=== PATIENT | male | born 1990 | race African-American/Black ===

== ENCOUNTER 2017-09-04 15:08 | Emergency (ER) | payer MEDICAID ==
[2017-09-04 16:04] VITALS: BP 0/0
== END 2017-09-04 16:04 | disposition left against medical advice (07) ==
LOC: ED 15:08
DX: T24.002A Burn of unspecified degree of unspecified site of left lower limb, except ankle and foot, initial encounter (principal); X08.8XXA Exposure to other specified smoke, fire and flames, initial encounter; Y92.9 Unspecified place or not applicable; Z53.20 Procedure and treatment not carried out because of patient's decision for unspecified reasons
CPT/HCPCS: 99281

== ENCOUNTER 2018-06-08 06:19 | Emergency (ER) | payer MEDICAID ==
--- NOTE | 2018-06-08 07:01 | ED ---
Skin Complaint - HPI Summary HPI Summary: 27-year-old male presents with a lesion to left foot that opened up for the past couple days. He states that he had noticed some darkening of his left great toe 2 weeks ago. He states 2 days ago it started to ooze and open up. He states he cannot feel anything in his legs due to being paraplegic. He denies any fevers or chills. No pain. No other symptoms. He states that he has been having foul-smelling urine. He self caths and cannot feel anything at baseline but normally when he has foul-smelling urine he has UTI. He states he has a history of UTIs. he is not diabetic. he can not feel if his shoes are too tight. - History of Current Complaint Chief Complaint: EDGeneral Time Seen by Provider: 06/08/18 06:39 Stated Complaint: LEFT FOOT PAIN Pain Intensity: 0 - Allergy/Home Medications Allergies/Adverse Reactions: Allergies Allergy/AdvReac Type Severity Reaction Status Date / Time No Known Allergies Allergy Verified 09/04/17 15:24 Home Medications: Home Medications Baclofen TAB* [Lioresal TAB*] 10 mg PO TID PRN 06/08/18 [History Confirmed 06/08] Oxybutynin TAB* [Ditropan TAB*] 5 mg PO TID 06/08/18 [History Confirmed 06/08/18 ] PMH/Surg Hx/FS Hx/Imm Hx Endocrine/Hematology History: Denies: Hx Anticoagulant Therapy Neurological History: Reports: Other Neuro Impairments/Disorders - paraplegia Infectious Disease History: No Infectious Disease History: Denies: Traveled Outside the [place] in Last 30 Days - Family History Known Family History: Positive: Non-Contributory - Social History Alcohol Use: Occasionally Substance Use Type: Reports: None Smoking Status (MU): Light Every Day Tobacco Smoker Review of Systems Negative: Fever Negative: Cough Positive: other - foul smelling urine Positive: Rash - left foot All Other Systems Reviewed And Are Negative: Yes Physical Exam Triage Information Reviewed: Yes Vital Signs On Initial Exam: Initial Vitals Temp Pulse Resp BP Pulse Ox 98 F 86 18 126/71 98 06/08/18 06:25 06/08/18 06:25 06/08/18 06:25 06/08/18 06:25 06/08/18 06:25 Vital Signs Reviewed: Yes Appearance: Positive: Well-Appearing Skin: Positive: Other - 4cm by 3cm ulcer on left foot with surrounding erythema Head/Face: Positive: Normal Head/Face Inspection Eyes: Positive: Normal, Conjunctiva Clear ENT: Positive: Pharynx normal Respiratory/Lung Sounds: Positive: Clear to Auscultation, Breath Sounds Present Cardiovascular: Positive: Normal, RRR Abdomen Description: Positive: Nontender, Soft Bowel Sounds: Positive: Present Musculoskeletal: Positive: Other - good pulses, unable to move legs due to paraplegia Neurological: Positive: Other - no sensation in legs at baseline Psychiatric: Positive: Normal Procedures - Laceration/Wound Repair 1 Location: Other - left fot Description: Irregular Length, Depth and Shape: 4cm by 3cm ulcer Irrigated w/ Saline (ccs): 100 Debridement: moderate Sterile Dressing Applied?: Yes - xeroform, telfa and loose coband Diagnostics - Vital Signs Vital Signs Temp Pulse Resp BP Pulse Ox 06/08/18 06:25 98 F 86 18 126/71 98 - Laboratory Result Diagrams: 06/08/18 07:08 06/08/18 07:08 Lab Statement: Any lab studies that have been ordered have been reviewed, and results considered in the medical decision making process. - Radiology foot Radiology Interpretation Completed By: Radiologist Summary of Radiographic Findings: IMPRESSION: 1. OSTEOPENIA. 2. NO APPRECIABLE EROSION OR PERIOSTEAL REACTION. 3. PLAIN FILM FINDINGS OF OSTEOMYELITIS ARE RELATIVELY LATE FINDINGS. IF THERE IS. PERSISTENT CLINICAL CONCERN FOR OSTEOMYELITIS, RECOMMEND CORRELATION WITH FOLLOWUP. IMAGING, THREE- PHASE BONE SCANNING, WHITE BLOOD CELL SCAN, AND/OR MRI OF THE AFFECTED. REGION. Course/Dx - Course Course Of Treatment: 27-year-old male presents with a lesion to left foot that opened up for the past couple days. He states that he had noticed some darkening of his left great toe 2 weeks ago. He states 2 days ago it started to ooze and open up. He states he cannot feel anything in his legs due to being paraplegic. He denies any fevers or chills. No pain. No other symptoms. He states that he has been having foul-smelling urine. He self caths and cannot feel anything at baseline but normally when he has foul- smelling urine he has UTI. He states he has a history of UTIs. on exam has 4cm by 3cm ulcer on left foot with surrounding erythema. nontender abd but cant feel anything at baseline. wbc normal. crp elevated. lactic normal. urine shows uti. gave dose of cefepime here. will use levaquin at home as will give coverage for complicated uti with cade and cellulitis with ulcer. debride wound and placed xeroform on area. told to wash area with soap and water twice a day and apply xeroform until can be seen by wound clinic for follow up. told to not wear shoes until heals. warned if develop fever to return. patient understand and agrees with plan. - Differential Diagnoses - Skin Complaint Differential Diagnoses: Abscess, Cellulitis, Contact Dermatitis - Diagnoses Provider Diagnoses: Ulcer of left foot, Cellulitis, UTI (urinary tract infection) Discharge - Sign-Out/Discharge Documenting (check all that apply): Patient Departure - Discharge Plan Condition: Good Disposition: HOME Prescriptions: Levofloxacin TAB* [Levaquin TAB*] 750 mg PO DAILY #10 tab Patient Education Materials: Urinary Tract Infection in Men (ED), Pressure Injury (ED) Referrals: [facility] [Outside] [facility] [Outside] Additional Instructions: Follow up with wound clinic Follow up with [facility] wash area with soap and water twice a day, apply xeroform, telfa and loose coband Take Levaquin once a day for 10 days avoid wearing shoes Return to ED if develop fever or any new or worsening symptoms - Billing Disposition and Condition Condition: GOOD Disposition: Home
[2018-06-08 07:22] LABS: ABS Basophils 0.1 10^3/ul (0-0.2); ABS Eosinophils 0.3 10^3/ul (0-0.6); ABS Lymphocytes 2.5 10^3/ul (1.0-4.8); ABS Monocytes 0.9 10^3/ul (0-0.8); ABS Neutrophils 4.4 10^3/ul (1.5-7.7); ABS Nucleated RBC 0 10^3/ul; Eosinophil % 3.8 %; Hematocrit 44 % (42-52); Hemoglobin 14.4 g/dl (14.0-18.0); Mean Corpuscular HGB Conc 33 g/dl (31-36); Mean Corpuscular Hemoglobin 31 pg (27-31); Mean Corpuscular Volume 93 fL (80-94); Mean Platelet Volume 8.1 fL (7.4-10.4); Nucleated Red Blood Cells % 0.2; Platelet Count 233 10^3/ul (150-450); Red Cell Distribution Width 13 % (10.5-15); White Blood Count 8.2 10^3/ul (3.5-10.8)
[2018-06-08 07:42] LABS: Albumin/Globulin Ratio 1.4 (1-3); BUN/Creatinine Ratio 12.6 (8-20); C Reactive Protein 11.22 mg/L (<8.01); Calcium 9.2 mg/dL (8.6-10.3); EGFR Non-African American 86.6 (>60); Globulin 2.8 g/dL (2-4); Potassium 3.8 mmol/L (3.5-5.0); Total Bilirubin 0.3 mg/dL (0.2-1.0); Total Protein 6.8 g/dL (6.4-8.9)
[2018-06-08] MEDS ORDERED: Cefepime(*) 2 GM in NS 0.9% 50 ML* 50 ML IVPB ONE (07:46)
[2018-06-08 07:49] LABS: Urine Appearance Cloudy; Urine Bacteria 1+ (Absent); Urine Bilirubin Negative (Negative); Urine Blood Negative (Negative); Urine Color Yellow; Urine Glucose Negative (Negative); Urine Ketones Negative (Negative); Urine Nitrite Negative (Negative); Urine Protein Negative (Negative); Urine Red Blood Cell 1+(3-5/hpf) (Absent); Urine Specific Gravity 1.032 (1.010-1.030); Urine Urobilinogen Negative (Negative); Urine White Blood Cell 3+(>20/hpf) (Absent)
[2018-06-08 08:59] VITALS: BP 137/77
--- NOTE | 2018-06-09 07:01 | PN ---
Progress Note - Progress Note Date of Service: 06/08/18 Note: s. aureus positive patient placed on levaquin will await sensitivities
--- NOTE | 2018-06-11 06:08 | PN ---
Progress Note - Progress Note Date of Service: 06/08/18 Note: Levaquin sensitive to organism Appropriate treatment was placed Nothing further this time
== END 2018-06-08 08:57 | disposition home or self-care (01) ==
LOC: ED 06:19
DX: L97.529 Non-pressure chronic ulcer of other part of left foot with unspecified severity (principal); L03.90 Cellulitis, unspecified; N39.0 Urinary tract infection, site not specified; R21 Rash and other nonspecific skin eruption; F17.210 Nicotine dependence, cigarettes, uncomplicated
CPT/HCPCS: 36415; 80053; 81003; 81015; 83605; 85025; 86140; 86703; 87040; 87070; 87076; 87077; 87086; 87186; 87205; 87640; 87641; 96365; 99283; J0692